=== PATIENT | male | born 1945 | race Caucasian/White ===

== ENCOUNTER → 2018-12-26 | Outpatient (CLI) | payer OTHER ==
--- NOTE | 2018-12-26 09:16 | Diagnostic Imaging Report ---
INDICATION: Right hand pain for approximately 6 months. No known injury. TECHNIQUE: Three views of the right hand. CORRELATION STUDY: None. FINDINGS: There is no acute fracture or dislocation. Mild degenerative changes through the interphalangeal joints, most pronounced at the level of the thumb. There is an irregular appearance about the distal mary of the fingers, particularly the little finger, likely of no significance. The soft tissues are unremarkable. IMPRESSION: Negative for acute bony abnormality of the hand. Suggestion of very mild degenerative changes through the interphalangeal joints, most severe at the phalangeal joint of the thumb. Dictated by: Dictated on workstation # [id number]
== END ==
LOC: RAD FS 08:54
PROVIDERS: ATTEND Nurse Practitioner
DX: M79.641 Pain in right hand (principal)
CPT/HCPCS: 73130

== ENCOUNTER → 2020-12-26 | Outpatient (CLI) | payer MEDICARE ==
[~2020-12-26] MED LIST: CELE-63 PO; GLUC1CAP37 PO; MULT-1067 PO; OMEG-160 PO; PRAV80TA2 PO; TMSL.4C PO; UBID30CA13 PO; VITA100T6 PO; VITA1CAP19 PO
--- NOTE | 2020-12-26 17:40 | Diagnostic Imaging Report ---
PROCEDURE: MRI lumbar spine. TECHNIQUE: Multiplanar, multisequence MRI of the lumbar spine was performed without contrast. INDICATION: Back pain radiating down both legs. COMPARISON: No relevant comparison. FINDINGS: Lumbar statures are normal. The alignment is anatomic. The marrow signal intensity is normal. No contusion, marrow edema, or fracture. No findings of infection or neoplasm. The conus appeared normal. There is normal dispersal of the nerves of the cauda equina. No acute epidural abnormality. The ligamentous structures were intact. The T12-L1, the L1-L2, and the L2-L3 levels and discs were normal. The canal, foramina, and recesses were widely patent. L3-L4: There is disc desiccation and slight stature loss with mild anterior greater than posterior osteophyte disc material. There is significant buckling and thickening of the ligamenta flava and hypertrophic facet arthrosis. Some [id number] magnitude of central canal stenosis, predominantly on the basis of the posterior element hypertrophy. There is moderate right and mild left neuroforaminal narrowing. L4-L5: There is slight disc desiccation and mild circumferential annular bulge but no focal herniation. There is thickening of the ligamenta flava and hypertrophic facet arthrosis and predominantly on the basis of the posterior element disease, there is a moderate severity of central canal stenosis. This patient has a [id number] left and mild right neuroforaminal narrowing. L5-S1: This disc is nondisplaced and there is no substantial canal stenosis. There are some endplate osteophytes, resulting in mild biforaminal stenosis. IMPRESSION: Degenerative changes to the discs, endplates, and posterior elements result in multilevel spinal canal and neuroforaminal stenoses of varying severity as listed level by level above. Normal alignment. No acute bony abnormality. Dictated by: Dictated on workstation # [id number]
== END ==
LOC: RAD 15:51
PROVIDERS: ATTEND Family Medicine
DX: M47.816 Spondylosis without myelopathy or radiculopathy, lumbar region (principal); M51.26 Other intervertebral disc displacement, lumbar region; M51.36 Other intervertebral disc degeneration, lumbar region; M48.061 Spinal stenosis, lumbar region without neurogenic claudication; M48.07 Spinal stenosis, lumbosacral region; M25.78 Osteophyte, vertebrae; M24.28 Disorder of ligament, vertebrae; M89.38 Hypertrophy of bone, other site
CPT/HCPCS: 72148

== ENCOUNTER → 2021-07-13 | Outpatient (CLI) | payer MEDICARE ==
--- NOTE | 2021-07-13 11:24 | Diagnostic Imaging Report ---
PROCEDURE: MRI lumbar spine. TECHNIQUE: Multiplanar, multisequence MRI of the lumbar spine was performed without contrast. INDICATION: History of lumbar spine surgery. Increasing low back pain COMPARISON: 12/26/2020 FINDINGS: There are postsurgical changes from prior laminectomy at L3 and L4, with soft tissue edema/granulation tissue at this site. No fracture is seen in the lumbar spine. Alignment is normal with no spondylolisthesis. Vertebral body heights are preserved. Disc heights are generally preserved although there is decreased T2 signal of L3-L4. T12-L1: Mild disc bulge with facet arthropathy. No spinal canal stenosis. No foraminal stenosis. L1-L2: Diffuse disc bulge. Facet arthropathy. No spinal canal stenosis. Mild right foraminal narrowing. No left foraminal stenosis. L2-L3: Diffuse disc bulge with facet arthropathy and ligamentous infolding. No spinal canal stenosis. Mild left foraminal narrowing and no right foraminal stenosis. L3-L4: Diffuse disc bulge with facet arthropathy including fluid in the right facet. No spinal canal stenosis. Moderate right and moderate to severe left foraminal stenosis. L4-L5: Diffuse disc bulge with facet arthropathy and ligamentous infolding. There is a synovial cyst of the right facet in the spinal canal which measures 1.1 x 0.4 cm on axial imaging, and 2.6 cm craniocaudal. This results in severe spinal canal stenosis with effacement of the lateral recesses bilaterally. There is severe bilateral foraminal stenosis. L5-S1: Mild disc bulge and facet arthropathy. No spinal canal stenosis. Severe right and moderate to severe left foraminal stenosis. 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 IMPRESSION: 1. 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 2. Postlaminectomy changes with no soft tissue fluid collection seen. Dictated by: Dictated on workstation # [id number]
== END ==
LOC: RAD 07:38
PROVIDERS: ATTEND Physician Assistant
DX: M47.26 Other spondylosis with radiculopathy, lumbar region (principal); M48.062 Spinal stenosis, lumbar region with neurogenic claudication; M71.38 Other bursal cyst, other site; Z98.890 Other specified postprocedural states
CPT/HCPCS: 72148

== ENCOUNTER → 2021-09-14 | Outpatient (CLI) | payer MEDICARE | LOC: RAD FS 09-11 10:30 → LAB FS 10:10 | PROVIDERS: ATTEND Orthopaedic Surgery Orthopaedic Trauma | DX: Z01.812 Encounter for preprocedural laboratory examination (principal); Z20.822 Contact with and (suspected) exposure to COVID-19 | CPT/HCPCS: 87636 ==